=== PATIENT | female | born 1995 | race Caucasian/White ===

== ENCOUNTER 2017-09-12 02:12 | Emergency (ER) | payer BC, OTHER ==
[~2017-09-12] VITALS: Ht 157.5 cm; Wt 63.5 kg
[2017-09-12 02:18] VITALS: BP_SYST 122
[2017-09-12] MEDS ORDERED: KETOROLAC TROMETHAMINE 30 MG VIAL IM ONE (02:30)
[2017-09-12] MEDS ORDERED: ONDANSETRON 4 MG ODT TAB PO ONE (02:30)
[2017-09-12 03:06] LABS: INFLUENZA A&B ANTIGEN SCREEN NEGATIVE FOR A & B (NEGATIVE); STREPTOCOCCUS A SCREEN (RAPID) NEGATIVE (NEGATIVE)
[2017-09-12 03:16] VITALS: BP_SYST 128
== END 2017-09-12 03:16 | disposition home or self-care (01) ==
LOC: SED 02:12
DX: J06.9 Acute upper respiratory infection, unspecified (principal)
CPT/HCPCS: 36415; 81025; 86403; 86710; 87081; 96372; 99284; J1885; Q0162